=== PATIENT | female | born 1980 | race African-American/Black ===

== ENCOUNTER 2016-07-28 14:25 | Emergency (ER) | payer OTHER ==
[2016-07-28 14:12] LABS: INFLUENZA A NEG (NEG); INFLUENZA B POS (NEG)
== END 2016-07-28 14:32 | disposition home or self-care (01) ==
LOC: CFTX 14:25
PROVIDERS: Physician Assistant
DX: J10.1 Influenza due to other identified influenza virus with other respiratory manifestations (principal); E28.2 Polycystic ovarian syndrome; Z90.49 Acquired absence of other specified parts of digestive tract; Z88.8 Allergy status to other drugs, medicaments and biological substances
CPT/HCPCS: 87804; 99282

== ENCOUNTER 2016-09-22 21:23 | Emergency (ER) | payer OTHER | END 2016-09-22 21:40 | disposition left against medical advice (07) | LOC: CED 21:23 | DX: Z53.21 Procedure and treatment not carried out due to patient leaving prior to being seen by health care provider (principal) ==

== ENCOUNTER 2016-10-04 14:33 | Emergency (ER) | payer OTHER ==
--- NOTE | ~2016-10-04 | CR181 ---
[facility] A Service of [facility] RADIOLOGY TEXT RESULTS PATIENT: COTY HOWELL LOCATION: CFTX : 84 UNIT #: [id number] AGE: [address]: Ashley Naranjo SEX: F ORDER DR: [id number] [facility] [address] [place], [place] [address] [id number] E MR#: [id number] Acc #: [id number] NAME: COTY HOWELL : 1980 SEX: F STUDY DATE/TIME: 10/04/2016 15:08 UNIT: [facility] ROOM: STUDY DESCRIPTION: CR Lumbar Spine 2 or 3 Views Attending Physician: Ashley Naranjo Pa-C Ordering Physician: Ashley Naranjo Pa-C Primary Care Physician: Purvi Cornelius MEDICAL IMAGING REPORT This report is preliminary unless electronic signature is present EXAM Lumbar spine 3 views HISTORY Low back pain radiating down left leg for 1-2 days. AP lateral spot views are submitted and compared directly to a prior spine of 01/24/2014 lumbar alignment is normal. Disc space and vertebral body height is maintained. No fractures, lytic or blastic lesions are seen. CONCLUSION Negative lumbosacral spine. Dictated by... Nando Paniagua M.D. THIS IS AN ELECTRONICALLY VERIFIED REPORT Nando Paniagua M.D. at 10/05/2016 7:28 AM GRIS/shannan TD: 10/04/2016 19:09 JOB #: [id number] MEDICAL IMAGING REPORT Page 1 of 1 COPY
== END 2016-10-04 15:59 | disposition home or self-care (01) ==
LOC: CFTX 14:33 → CED 14:33 → CFTX 15:49
DX: M54.42 Lumbago with sciatica, left side (principal); F17.210 Nicotine dependence, cigarettes, uncomplicated; Z91.041 Radiographic dye allergy status
CPT/HCPCS: 72100; 84703; 96372; 99283; J1885; J2360